=== PATIENT | female | born 1985 | race Native Hawaiian/Other Pacific Islander ===

== ENCOUNTER 2016-10-10 14:49 | Outpatient (CLI) | payer MEDICAID, OTHER | END 2016-10-10 14:50 | disposition home or self-care (01) | LOC: MADLABBHPM 14:49 | PROVIDERS: ATTEND Family Medicine | DX: O09.892 Supervision of other high risk pregnancies, second trimester (principal) | CPT/HCPCS: 36415; 87086 ==

== ENCOUNTER 2016-11-06 08:10 | Outpatient (CLI) | payer MEDICAID | END 2016-11-06 08:11 | disposition home or self-care (01) | LOC: MADLABBHPM 08:10 | PROVIDERS: ATTEND Family Medicine | DX: O09.893 Supervision of other high risk pregnancies, third trimester (principal) | CPT/HCPCS: 36415; 82951; 82952 ==

== ENCOUNTER 2016-12-19 15:35 | Outpatient (CLI) | payer MEDICAID | END 2016-12-19 15:36 | disposition home or self-care (01) | LOC: MADLABBHPM 15:35 | PROVIDERS: ATTEND Family Medicine | DX: O09.893 Supervision of other high risk pregnancies, third trimester (principal) | CPT/HCPCS: 87077; 87081 ==

== ENCOUNTER 2017-02-17 14:47 | Outpatient (CLI) | payer MEDICAID, OTHER ==
[2017-02-17 15:06] LABS: #Basophils 0.1 thou/uL (0.0-0.2); #Eosinphils 0.1 thou/uL (0.0-0.7); #Lymphocytes 3.1 thou/uL (1.20-3.40); #Monocytes 0.8 thou/uL (0.11-0.59); #Neutrophils 7.9 thou/uL (1.40-6.50); %Basophils 0.9 % (0.0-1.0); %Eosinophils 0.5 % (0.0-10.0); %Lymphocytes 25.7 % (21.0-51.0); %Monocytes 6.6 % (0.0-10.0); %Neutrophils 66.3 % (42.0-75.0); Hemoglobin 11.4 g/dL (12.0-16.0); Mean Corpuscular Volume 87.4 fl (81.0-99.0); Mean Platelet Volume 6.2 fL (7.4-10.4); Platelet Count 322 thou/uL (130-400); RBC Distribution Width 13.3 % (11.5-14.5); Red Blood Cell (RBC) Count 4.08 mill/uL (4.20-5.40); White Blood Cell (WBC) Count 11.9 thou/uL (4.8-10.8)
[2017-02-17 15:21] LABS: ALT (SGPT) 14 U/L (8-55); AST (SGOT) 9 U/L (5-34); Albumin 3.8 g/dL (3.5-5.0); Alkaline Phosphatase 74 U/L (40-150); Anion Gap 12 mmol/L (10-20); BUN (Urea Nitrogen) 8 mg/dL (7.0-18.7); Calc. Creatinine Clearance 0 mL/min (70-130); Calcium 9.1 mg/dL (7.8-10.44); Carbon Dioxide 27 mmol/L (22-29); Chloride 105 mmol/L (98-107); Estimated GFR-MDRD Greater than 90; Globulin 3.5 g/dL (2.4-3.5); Glucose 108 mg/dL (70-105); Lipase 17 U/L (8-78); Potassium 3.9 mmol/L (3.5-5.1); Protein, Total 7.3 g/dL (6.0-8.3); Sodium 140 mmol/L (136-145)
[2017-02-17 15:29] LABS: Bilirubin, Total 0.4 mg/dL (0.2-1.2)
== END 2017-02-17 14:48 | disposition home or self-care (01) ==
LOC: MADLABBHPM 14:47
PROVIDERS: ATTEND Family Medicine
DX: R10.11 Right upper quadrant pain (principal)
CPT/HCPCS: 36415; 80053; 82150; 83690; 85025

== ENCOUNTER 2017-02-18 07:24 | Outpatient (CLI) | payer MEDICAID, OTHER ==
--- NOTE | 2017-02-18 09:51 | ULT ---
GALLBLADDER ULTRASOUND: History: Right upper quadrant pain. FINDINGS: Real-time imaging of the right upper quadrant was performed. The exam is technically difficult due t o body habitus. The gallbladder shows some minimal sludge but no definitive stones are identified. T he technologist reports a positive ultrasound Lopez's sign. Common duct is in the 3 mm range. Visua lized liver parenchyma is unremarkable. Pancreas is partially obscured. The right kidney is normal i n size and not obstructed. IMPRESSION: Suggestion of a small amount of gallbladder sludge. Technologist reports a positive ultrasound Marky y's sign. No definite stones or gallbladder wall thickening seen. POS: [facility]
== END 2017-02-18 07:25 | disposition home or self-care (01) ==
LOC: MADULT 07:24
PROVIDERS: ATTEND Family Medicine
DX: R10.11 Right upper quadrant pain (principal)
CPT/HCPCS: 76705